=== PATIENT | female | born 1980 | race Caucasian/White ===

== ENCOUNTER 2016-10-30 10:33 | Inpatient (IN) | payer OTHER ==
[~2016-10-30] VITALS: Ht 152.4 cm; Wt 43.1 kg
[2016-10-30 19:45] VITALS: BP 137/99
--- NOTE | 2016-10-30 19:45 | NUR ---
Pre-Admission Note: Patient assessed in intake office at 19:45 on 10/30/2016. Patient is ambulatory with steady gait, stable, A&OX4, speech is clear. Patient states that she is here to safely detox from ETOH and benzodiazepines. Pt reports drinking 4 beers plus 1-1.5 bottles of wine daily for more than 6 months. Pt also reports taking Valium 10mg TID or Klonopin 1mg TID. Pt reports PRN use of Ambien. Patient states that she has taken 10mg of Valium and drink 2 glasses of wine on the flight to [place]. Patient noted to be flushed, with fine tremor, and guarded. VS: 137/99, 82, 98.0, 16, 96% Spo2 on RA. Patient denies pain at this time. Patient reports NKDA/NKFA. Patient instructed on unit protocol of vitals Q4H and COWS/CIWA assessments. Patient verbalized understanding and agreement. Patient also instructed on policy regarding destruction of any controlled substances/prescriptions brought to facility, and handling of all medications. Patient verbalized understanding and agreement. Will complete admission assessment when patient is brought up to unit.
--- NOTE | 2016-10-30 20:00 | NUR ---
ADMISSION NOTE: NEW ADMISSION IS A 35 YO FEMALE ON THE [facility] FLOOR AT 20:00 ON 10/30/16; PRE-ADMISSION ASSESSMENT COMPLETED IN INTAKE OFFICE. UDS/HCG SPECIMEN COLLECTED IN INTAKE. VS: 137/99, 82, 98.0, 16, 96% SPO2 ON RA. CIWA IS 18: PT REPORTS ANXIETY, AGITATION, DIAPHORESIS, NAUSEA, TACTILE DISTURBANCES, TREMOR, SENSITIVITY TO LIGHT AND SOUND. HEIGHT IS 50 AND WEIGHT BY BED SCALE IS 95 LBS. PT REPORTS NKDA/NKFA. PT REPORTS PCP (1) DR JCARLOS ARIAS, AND (2) DR KAYA RODRIGUEZ. PT ADMITTED UNDER THE CARE OF DR JENNINGS. PT REPORTS THE FOLLOWING SUBSTANCE USE: ETOH: PT REPORTS DRINKING 4-5 BEERS PLUS 750-1125ML WINE DAILY FOR MORE THAN 6 MONTHS. PATIENT REPORTS BEGINNING TO DRINK ON A DAILY BASIS STARTING IN 2010. LAST DRINK WAS 2 GLASSES OF WINE ON FLIGHT FROM [place] TO [facility]. VALIUM: PT REPORTS TAKING 10MG TID. PATIENT REPORTS TAKING VALIUM AT THIS RATE FOR MORE THAN 6 MONTHS. PT REPORTS DAILY USE OF VALIUM STARTING IN 2010. LAST USE WAS 10MG ON FLIGHT FROM [place] TO [facility] . KLONOPIN: PT REPORTS TAKING 1MG TID WHEN SHE RUNS OUT OF VALIUM. PATIENT REPORTS TAKING AMBIEN PRESCRIBED PRN FOR INSOMNIA. LAST TAKEN APPROXIMATELY 3 WEEKS AGO. PT REPORTS SMOKING 2-2.5 PACKS CIGARETTES DAILY FOR 17 YEARS. WRITTEN SMOKING CESSATION EDUCATION PROVIDED. PT VERBALIZES UNDERSTANDING. PT DENIES ADMISSION TO ANY TREATMENT/DETOX FACILITIES IN THE PAST. PT REPORTS PMHX OF HTN, ANXIETY, DEPRESSION, HYSTERECTOMY (2016). PT DENIES SZ HX. HOME MEDICATIONS HAVE BEEN RECONCILED. PT IS AMBULATORY WITH STEADY GAIT. A&OX4 AND NOTED TO BE GUARDED, DIAPHORETIC AND FLUSHED WITH FINE TREMOR. SKIN IS INTACT. PT DENIES CURRENT OR HX OF SI/HI. LUNGS ARE CTA THROUGHOUT, RESPIRATIONS ARE EVEN AND UNLABORED. PT REPORTS DRY COUGH; LUNGS CTA. HEART SOUNDS REGULAR. BOWEL SOUNDS ACTIVE IN ALL QUADRANTS. ABDOMEN IS SOFT, NON-DISTENDED, NON-TENDER.
[2016-10-30] MEDS ORDERED: MIRALAX 17 GM POWD.PACK PO PRN (21:30)
[2016-10-30] MEDS ORDERED: IBUPROFEN 400 MG TABLET PO PRN (21:30)
[2016-10-30] MEDS ORDERED: LORAZEPAM 1 MG TABLET PO PRN ×2 (21:30)
[2016-10-30] MEDS ORDERED: LOPERAMIDE HCL 2 MG CAPSULE PO PRN ×2 (21:30)
[2016-10-30] MEDS ORDERED: LORAZEPAM 2 MG/1 ML VIAL IM PRN (21:30)
[2016-10-30] MEDS ORDERED: DICYCLOMINE HCL 20 MG TABLET PO PRN (21:30)
[2016-10-30] MEDS ORDERED: MAGNESIUM HYDROXIDE 30 ML LIQUID UDC PO PRN (21:30)
[2016-10-30] MEDS ORDERED: ACETAMINOPHEN 325 MG TABLET PO PRN (21:30)
[2016-10-30] MEDS ORDERED: ONDANSETRON ODT 4 MG TAB.RAPDIS SL PRN (21:30)
[2016-10-30] MEDS ORDERED: THIAMINE HCL 200 MG/2 ML VIAL IM ONE (21:30)
[2016-10-30] MEDS ORDERED: MAG HYDROX/AL HYDROX/SIMETH 30 ML LIQUID UDC PO PRN (21:30)
--- NOTE | 2016-10-30 21:30 | NUR ---
Thiamine Refused: Patient refuses Thiamine IM injection. Patient educated on risks and benefits but refused again. Will continue to monitor.
[2016-10-30] MEDS: diphenhydrAMINE 50 MG CAPSULE PO PRN (21:52)
--- NOTE | 2016-10-30 21:52 | NUR ---
PRN Ativan, PRN Benadryl, and PRN Clonidine: Patient complains of anxiety, agitation, diaphoresis, tactile disturbances, sensitivity to light and sound, headache. CIWA is 18. Administered PRN Ativan 2mg as ordered according to CIWA score. Patient complains of anxiety and agitation. BP is 137/99. Administered PRN Clonidine as ordered. Patient complains of inability to sleep. Administered PRN Benadryl as ordered. Will continue to monitor.
[2016-10-30] MEDS: CLONIDINE HCL 0.1 MG TABLET PO PRN (21:53)
[2016-10-30] MEDS ORDERED: THIAMINE HCL 200 MG/2 ML VIAL ONE (21:54)
[2016-10-30] MEDS ORDERED: diphenhydrAMINE 50 MG CAPSULE ONE (21:55)
[2016-10-30] MEDS ORDERED: LORAZEPAM 1 MG TABLET ONE (21:55)
[2016-10-30] MEDS ORDERED: CLONIDINE HCL 0.1 MG TABLET ONE (21:56)
--- NOTE | 2016-10-30 22:55 | NUR ---
PRN Reassessment: Patient reports decrease in tremor, diaphoresis, tactile disturbances, and auditory/visual sensitivity. CIWA decreased from 18 to 5 one hour after PRN Ativan 2mg administration. PRN Ativan effective. Patient reports decrease in anxiety and diaphoresis. BP decreased from 137/99 to 114/80. PRN Clonidine effective. Patient reports feeling drowsy and states that she will be able to sleep. PRN Benadryl effective.
[2016-10-30 23:35] LABS: BASOPHILS # (AUTO) 0.1 K/uL (0.0-8.0); BASOPHILS % (AUTO) 0.9 % (0.0-2.0); EOSINOPHILS # (AUTO) 0.2 K/uL (0.0-0.7); EOSINOPHILS % (AUTO) 3.2 % (0.0-7.0); HEMATOCRIT 41.7 % (37-47); LYMPHOCYTES # (AUTO) 1.4 K/UL (0.8-4.8); MEAN CORPUSCULAR HEMOGLOBIN 32.6 UUG (27.0-31.0); MEAN CORPUSCULAR HGB CONC 34 g/dL (32.0-37.0); MEAN CORPUSCULAR VOLUME 97.2 FL (81.0-99.0); MONOCYTES # (AUTO) 0.3 K/UL (0.1-1.30); MONOCYTES % (AUTO) 4.3 % (0.0-11.0); NEUTROPHILS # (AUTO) 4.8 K/UL (1.8-8.9); NEUTROPHILS % (AUTO) 70.6 % (38.5-71.5); PLATELET COUNT (AUTO) 192 K/UL (150-450); RED BLOOD CELL COUNT(AUTO) 4.29 MIL/UL (4.2-5.4); RED CELL DISTRIBUTION WIDTH 13.2 % (11.5-14.5); WHITE BLOOD COUNT (AUTO) 6.8 K/UL (4.0-11.2)
[2016-10-30 23:43] LABS: *URINE HCG, QUAL NEGATIVE (NEGATIVE)
[2016-10-30 23:43] LABS: ALBUMIN 3.4 g/dL (3.4-5.0); BILIRUBIN,TOTAL 0.6 mg/dL (0.2-1.0); CALCIUM 8.1 mg/dL (8.5-10.1); CREATININE 0.6 mg/dL (0.6-1.3); MAGNESIUM 1.9 mg/dL (1.8-2.4); POTASSIUM 3.6 mmol/L (3.5-5.1)
[2016-10-30 23:48] LABS: *AMPHETAMINE, URINE NEGATIVE (NEGATIVE); *BARBITURATE, URINE NEGATIVE (NEGATIVE); *CANNABINOID, URINE NEGATIVE (NEGATIVE); *COCCAINE, URINE NEGATIVE (NEGATIVE); *OPIATE, URINE NEGATIVE (NEGATIVE); *PHENCYCLIDINE SCREEN,URINE NEGATIVE (NEGATIVE)
[2016-10-30 23:52] LABS: THYROID STIMULATING HORMONE 1.881 mIU/mL (0.358-3.740)
[2016-10-31] VITALS: BP 114/80
[2016-10-31] LABS: HIV-1 p24 ANTIGEN NON REACTIVE (NONREACTIVE); HIV-1/2 ANTIBODY NON REACTIVE (NONREACTIVE)
--- NOTE | 2016-10-31 | NUR ---
CIWA Deferred: Ordered 00:00 CIWA Q4HWA assessment deferred for sleep. V/S stable. All safety precautions are in place. Will continue to monitor. Addendum: 10/31/16 at 0224 by MIKY AGUILA RN Amended: Links added.
[2016-10-31] MEDS ORDERED: DIAZ10TA4 PO (01:30)
[2016-10-31] MEDS ORDERED: CLON0.1T PO (01:30)
[2016-10-31] MEDS ORDERED: CLON1TAB4 PO (01:30)
[2016-10-31] MEDS ORDERED: PARO20TA6 PO (01:30)
[2016-10-31] MEDS ORDERED: ZOLP5TAB7 PO (01:30)
[2016-10-31 04:00] VITALS: BP 98/61
--- NOTE | 2016-10-31 04:00 | NUR ---
CIWA Deferred: Ordered 04:00 CIWA assessment is deferred for sleep. V/S stable. All safety precautions are in place. Will continue to monitor. Addendum: 10/31/16 at 0439 by MIKY AGUILA RN Amended: Links added.
--- NOTE | 2016-10-31 07:00 | NUR ---
End of Shift Note: Pt is a 35 yo female admitted to [facility] on 10/30/16 for medically-supervised withdrawal from ETOH and benzodiazepines. Pt reports PMHx: HTN, anxiety, depression, hysterectomy . Pt reports NKDA/NKFA and is on a regular diet. Pt reports drinking 4 beers plus 750-1125ml wine and taking 30mg Valium daily for over 6 months. PRN Ativan 2mg was given for CIWA=18, which was effective and reduced CIWA=5. Last CIWA=6 at 22:30. PRN Clonidine was given for increased BP and anxiety. PRN Benadryl was given for inability to sleep, which was effective as pt slept 8 hours this shift. V/S stable throughout shift with elevated BP of 137/99 on admission. Total fluid intake this shift: 473 ml; output: urine x 1 and BM x 0. Pt is currently in bed, all needs have been attended and met. Pt endorsed to day shift nurse.
--- NOTE | 2016-10-31 07:48 | NUR ---
BEGINNING OF SHIFT Patient endorsement report received from production shift supervisor nurse, all pertinent information discussed. Patient is a 35 year old Female admitted on 10/30/2016 with admitting Dx: Etoh/bzo dependence, patient currently with no ongoing taper but has PRN Ativan for s/sx of withdrawal, will monitor patient closely. Per report patient slept for 8 hour. with last ciwa score of: 5, Received PRN: Ativan 2mg Po for s/sx of withdrawal, as per production shift supervisor medication was effective. Patient received in room with eyes closed, respirations are even and unlabored. call light with in reach. Responsive to verbal stimuli, educated regarding plan of care for the day. will continue to monitor closely. safety measures in place.
[2016-10-31 08:39] VITALS: BP 111/76
[2016-10-31] MEDS: FOLIC ACID 1 MG TABLET PO SCH (08:40)
[2016-10-31] MEDS: MULTIVITAMINS,THERAPEUTIC TABLET PO SCH (08:40)
[2016-10-31] MEDS: THIAMINE HCL 100 MG TABLET PO SCH (08:40)
--- NOTE | 2016-10-31 08:48 | NUR ---
PRN ATIVAN 0900 assessment patient presented with: intermittent nausea, fine tremors, sweating, moderate anxiety, and mild agitation with ciwa score of: 15, MD was notified. patient was administered PRN: Ativan 1 mg PO as ordered, will monitor effectiveness of medication. patient encouraged increase PO fluid intake as tolerated. Patient offered anti nausea medication and refused. safety measures in place. call light kept with in reach, will continue to monitor.
[2016-10-31] MEDS ORDERED: TUBERCULIN,PURIF.PROT.DERIV. 5 TU/0.1 ML TEST ID ONE (09:00)
[2016-10-31] MEDS ORDERED: DIAZEPAM 10 MG TABLET PO PRN ×2 (09:45)
[2016-10-31] MEDS ORDERED: DIAZEPAM 5 MG TABLET PO PRN (09:45)
--- NOTE | 2016-10-31 09:48 | NUR ---
ATIVAN REASSESSMENT Medication somewhat effective patient currently with ciwa score of: 13, patient was seen and examined by Dr. Cuevas, patient to begin a Valium taper as ordered, will administer medication as ordered, will continue to monitor closely.
[2016-10-31] MEDS: DIAZEPAM 10 MG TABLET PO SCH ×4 (10:28→21:14)
[2016-10-31 12:30] VITALS: BP 126/81
[2016-10-31] MEDS: GABAPENTIN 300 MG CAPSULE PO SCH ×2 (15:07→21:14)
--- NOTE | 2016-10-31 15:19 | NUR ---
Therapist informed client regarding the times for group therapy, 11am and 3:30pm. Therapist discussed some benefits of attending group and encouraged client to do so. Client responded by saying she would attend if she felt well enough and was able to do so.
[2016-10-31 17:00] VITALS: BP 122/87
[2016-10-31] MEDS: HYDROXYZINE PAMOATE 25 MG CAPSULE PO PRN (18:44)
[2016-10-31] MEDS: CLONIDINE HCL 0.1 MG TABLET PO PRN (18:45)
--- NOTE | 2016-10-31 18:45 | NUR ---
PRN VISTARIL/CLONIDINE Patient returned from cafeteria after dinner and as coming back to [facility] floor patient began to have increase in anxiety, patient was brought back to room, noted tearful. patient encouraged to express self, provided with calming reassurance. Administered Vistaril 50mg Po and clonidine 0.1mg Po as ordered, blood pressure checked prior to administration: bp: 131/89 hr: 92. Safety measures in place. Endorsed to [employer] internship nurse to follow up.
--- NOTE | 2016-10-31 18:57 | NUR ---
END OF SHIFT Patient alert and oriented x4, vital signs stable during shift. Patient with admitting Dx: etoh/BZO dependence. Patient was started on a Valium taper as per Dr. Cuevas, first dose administered today at 1000. Medication well tolerated, no ASE noted. 0900 assessment patient presented with: intermittent nausea, fine tremors, sweating, moderate anxiety and mild agitation with ciwa score of: 15. 1300 assessment patient presented with: mild nausea, fine tremors, sweats, moderate anxiety and mild agitation with ciwa score of; 12. 1700 assessment patient presented with: fine tremors, barely sweating, moderate anxiety and mild agitation with ciwa score of: 9. . Patient was administered PRN Ativan 1mg at 0848 for s/sx of withdrawal, medication effective and administered: Administered Vistaril 50mg Po and clonidine 0.1mg Po at 1845, endorsed to nurse to follow up on effectiveness of medication. During shift patient was seen by Dr. Hathaway during shift as well. During shift administered PPD to left f/a, procedure well tolerated. Patient encouraged adequate PO fluid intake as tolerated. Encouraged to attend group therapies/sessions to learn new coping skills to prevent relapse, denies any SI/HI. Safety measures in place. call light kept with in reach. all needs met and rendered. patient endorsed to linux system administrator nurse, all pertinent information discussed.
--- NOTE | 2016-10-31 19:44 | NUR ---
Start of Shift Note: Report received from day shift nurse. Pt is a 35 yo female admitted on 10/30/16 for medically-supervised withdrawal from ETOH and benzodiazepines. Pt reports drinking 4 beers plus 750-1125ml wine and taking 30mg Valium daily for over 6 months. Pt is on day 1 of a 5-day Valium taper. Pt received with last CIWA=9, and PRN's Ativan, Clonidine, and Vistaril were given during day shift. Pt reports NKDA/NKFA and is on a regular diet. Pt reports PMHx: HTN, anxiety, depression, hysterectomy . Pt received in room, and reports anxiety, diaphoresis, tremor, agitation, tactile disturbances. Pt noted to be labile, face flushed. Bed is in low position and locked, side rails up x2, call light within reach. Will continue to monitor.
--- NOTE | 2016-10-31 19:45 | NUR ---
PRN Reassessment: Patient reports that anxiety is now at a manageable level. PRN Vistaril and PRN Clonidine effective. Will continue to monitor.
[2016-10-31 20:00] VITALS: BP 117/81
[2016-10-31] MEDS: diphenhydrAMINE 50 MG CAPSULE PO PRN (21:14)
--- NOTE | 2016-10-31 21:14 | NUR ---
PRN Benadryl: Patient complains of inability to sleep. Administered PRN Benadryl as ordered. Will continue to monitor.
--- NOTE | 2016-10-31 22:15 | NUR ---
PRN Reassessment: Patient is in bed with eyes closed. Respirations are even and unlabored. No s/s of acute distress noted. PRN Benadryl effective. Will continue to monitor.
[2016-11-01] VITALS (7 sets, daily range): BP systolic 97–125; BP diastolic 61–88
--- NOTE | 2016-11-01 | NUR ---
CIWA Deferred: Ordered CIWA Q4HWA at 00:00 deferred for sleep. V/S stable. All safety precautions are in place. Will continue to monitor. Addendum: 11/01/16 at 0037 by MIKY AGUILA RN Amended: Links added.
--- NOTE | 2016-11-01 04:00 | NUR ---
CIWA Deferred: CIWA assessment is deferred for sleep. V/S stable. All safety precautions are in place. Will continue to monitor. Addendum: 11/01/16 at 0505 by MIKY AGUILA RN Amended: Links added.
--- NOTE | 2016-11-01 06:59 | NUR ---
End of Shift Note: Pt is a 35 yo female admitted to [facility] on 10/30/16 for medically-supervised withdrawal from ETOH and benzodiazepines. Pt reports PMHx: HTN, hysterectomy, anxiety, and depression,. Pt reports NKDA/NKFA. Pt is on a regular diet. Pt is a full code. Pt reports drinking 4 beers and 750-1125ml wine daily for over 6 months. Pt also reports taking 30mg Valium daily for over 6 months. Pt is to start day 2 of a 5-day Valium taper. Scheduled medication regime effectively managed s/s of withdrawal this shift. Last CIWA=12 at 20:00 before taper medication was administered. PRN Benadryl was given for inability to sleep, which was effective and pt slept 7 hours this shift. V/S stable throughout shift, with increased HR of 85 at 20:00. Total fluid intake this shift: 1800 ml; output: urine x 5 and BM x 0. Pt is currently in bed, all needs have been attended and met. Pt endorsed to day shift nurse.
--- NOTE | 2016-11-01 07:45 | NUR ---
START OF SHIFT Rcvd endorsement from night nurse, client is in room, she is A/Ox4, she presents with depressed and anxious mood, flat affect, gross tremors and flushed face noted. She denies any N/V/D, headache or SI/HI. She is a 35 y/o female [facility] for medically-supervised withdrawal from ETOH and benzodiazepines. NKDA/NKFA, Regular diet, full code. Day 2 of a 5-day Valium taper, scheduled medication regime effectively managed s/s of withdrawal. Last CIWA 12 at 20:00 before taper medication was administered. PRN Benadryl was given for inability to sleep, which was effective and pt slept 7 hours this shift. Seizure precautions. Side rails x 2 up/padded. Call light within reach. Will continue plan of care.
[2016-11-01] MEDS: DIAZEPAM 10 MG TABLET PO SCH ×3 (08:40→21:12)
[2016-11-01] MEDS: GABAPENTIN 300 MG CAPSULE PO SCH ×4 (08:41→21:11)
[2016-11-01] MEDS: MULTIVITAMINS,THERAPEUTIC TABLET PO SCH (08:41)
[2016-11-01] MEDS: CLONIDINE HCL 0.1 MG TABLET PO SCH ×2 (08:41→17:38)
[2016-11-01] MEDS: FOLIC ACID 1 MG TABLET PO SCH (08:41)
[2016-11-01] MEDS: THIAMINE HCL 100 MG TABLET PO SCH (08:41)
[2016-11-01 12:07] LABS: HEPATITIS B CORE AB, IgM Negative (Negative); HEPATITIS B SURFACE AG Negative (Negative)
[2016-11-01] MEDS: CLONIDINE HCL 0.1 MG TABLET PO PRN ×2 (13:55→21:12)
[2016-11-01] MEDS: HYDROXYZINE PAMOATE 25 MG CAPSULE PO PRN (13:55)
--- NOTE | 2016-11-01 13:55 | NUR ---
PRN Clonidine and Vistaril Client reports irritability, cold chills Clonidine 0.1mg PO given and Vistaril 50mg given for anxiety. Risk/benefits discussed. She verbalized understanding. call light within reach.
--- NOTE | 2016-11-01 14:55 | NUR ---
Reassessment PRN Clonidine and Vistaril Client reports relief from irritability, anxiety and cold chills Clonidine and Vistaril effective. Call light within reach.
--- NOTE | 2016-11-01 19:38 | NUR ---
END OF SHIFT Client is in group therapy to learn skills to maintain sober, Valium taper continues and is effective managing her s/sx of withdrawal (gross tremors, flushed faced, restless legs, anxiety and irritability) She is a 35 y/o female admitted to [facility] on 10/30/16 for medically-supervised withdrawal from ETOH and benzodiazepines. NKDA/NKFA, Regular diet, full code. Last CIWA 7 at 1600. PRN Clonidine for irritability, chills and Vistaril for anxiety, both noted effective. Adequate intake 2631mL and output void x 8. Seizure precautions. Side rails x 2 up/padded. Call light within reach. Will continue plan of care.
--- NOTE | 2016-11-01 19:50 | NUR ---
Start of Shift Note: Report received from day shift nurse. Pt is a 35 Y/O female admitted on 10/30/16 for medically-supervised withdrawal from ETOH and benzodiazepines. Pt reports drinking 4 beers and 750-1125ml wine daily and taking 10mg Valium TID for over 6 months. Pt is on the second day of a 5-day Valium taper. Pt received with last CIWA=7, and PRN's Clonidine and Vistaril were given during day shift. Pt reports NKDA/NKFA. Full code status. Pt is on a regular diet. Pt reports PMHx: HTN, hysterectomy, anxiety, and depression. Pt received in room, and reports anxiety, fine tremor, and dyspepsia. Bed is in low position and locked, side rails up x2, call light within reach. Will continue to monitor.
[2016-11-01] MEDS: diphenhydrAMINE 50 MG CAPSULE PO PRN (21:12)
--- NOTE | 2016-11-01 21:12 | NUR ---
PRN Clonidine and PRN Benadryl: Patient complains of increased anxiety and inability to sleep. Administered PRN Clonidine and PRN Benadryl as ordered. Patient educated on risks and benefits. Will continue to monitor.
--- NOTE | 2016-11-01 22:15 | NUR ---
PRN Reassessment: Patient is in bed with eyes closed. Respirations are even and unlabored. No s/s of acute distress noted. PRN Clonidine and PRN Benadryl effective. Will continue to monitor.
[2016-11-02] VITALS: BP 89/54
--- NOTE | 2016-11-02 | NUR ---
CIWA Deferred: Ordered CIWA Q4HWA is deferred for sleep. V/S stable. All safety precautions are in place. Will continue to monitor. Addendum: 11/02/16 at 0247 by MIKY AGUILA RN Amended: Links added.
[2016-11-02 04:00] VITALS: BP 90/59
--- NOTE | 2016-11-02 04:00 | NUR ---
CIWA Deferred: CIWA assessment at 04:00 is deferred for sleep. V/S stable. Bed in low position, side rails up x2, call light within reach. Will continue to monitor. Addendum: 11/02/16 at 0408 by MIKY AGUILA RN Amended: Links added.
--- NOTE | 2016-11-02 06:56 | NUR ---
End of Shift Note: Pt is a 35 y/o female admitted to [facility] on 10/30/16 for medically-supervised withdrawal from benzodiazepines and ETOH. PMHx: HTN, hysterectomy, anxiety, depression. Full code status, NKDA/NKFA, regular diet. Pt reports taking 30mg Valium daily and drinking 4 beers and 750-1125ml wine daily for >6 months. Pt is to start the third day of a 5-day Valium taper. Scheduled medication regime effectively managed s/s of withdrawal this shift, in addition to PRN Clonidine for anxiety. Last CIWA=4 at 20:00. PRN Benadryl was given for inability to sleep, which was effective and pt slept 8 hours this shift. V/S stable throughout shift. Total fluid intake this shift: 1000 ml; output: urine x 2 and BM x 0. Pt is currently in bed, all needs have been attended and met. Pt endorsed to day shift nurse.
--- NOTE | 2016-11-02 07:30 | NUR ---
START OF SHIFT Rcvd endorsement from night nurse, client is in bed, A/Ox4, she presents with depressed mood, flat affect, stating "I felt a little bit better last night, but now I feel horrible I'm with tremors, restless legs, cold chills, sweats, feel very anxious." She denies any N/V/D or headache. She denies any SI/HI. Encouraged increased fluids to assist in facilitating detox. Encouraged group attendance to implrove coping skills. Client is on 3 out of 5 day of Valium taper to managed s/sx of withdrawal. [facility] for medically-supervised withdrawal from benzodiazepines and ETOH. She denies any hx of induced-withdrawal seizure. Full code status, NKDA, regular diet. PRN Clonidine for anxiety. Last CIWA 4 at 1999. PRN Benadryl was given for inability to sleep, which was effective and pt slept 8 hours. Seizure precautions. Side rails x 2 up/padded. Call light within reach. Will continue plan of care.
--- NOTE | 2016-11-02 08:41 | NUR ---
Zero induration noted at Left F/A TB site
[2016-11-02 08:50] VITALS: BP 119/71
[2016-11-02] MEDS: DIAZEPAM 5 MG TABLET PO SCH ×4 (09:06→21:46)
[2016-11-02] MEDS: FOLIC ACID 1 MG TABLET PO SCH (09:06)
[2016-11-02] MEDS: GABAPENTIN 300 MG CAPSULE PO SCH ×3 (09:06→21:45)
[2016-11-02] MEDS: CLONIDINE HCL 0.1 MG TABLET PO SCH ×2 (09:06→17:34)
[2016-11-02] MEDS: THIAMINE HCL 100 MG TABLET PO SCH (09:06)
[2016-11-02] MEDS: MULTIVITAMINS,THERAPEUTIC TABLET PO SCH (09:06)
[2016-11-02] MEDS: CLONIDINE HCL 0.1 MG TABLET PO PRN (12:45)
--- NOTE | 2016-11-02 12:45 | NUR ---
PRN Clonidine Client complains of increased anxiety, administered PRN Clonidine as ordered. Client educated on risks and benefits. Will continue to monitor. Call light within reach.
[2016-11-02 12:50] VITALS: BP 120/63
--- NOTE | 2016-11-02 13:45 | NUR ---
Reassessment PRN Clonidine Client reports relief from anxiety, Clonidine effective. Call light within reach.
[2016-11-02 17:15] VITALS: BP 139/73
--- NOTE | 2016-11-02 19:18 | NUR ---
END OF SHIFT Client is in group therapy to learn skills to maintain sober, Valium taper continues and is effective managing her s/sx of withdrawal (gross tremors, flushed faced, restless legs, anxiety and irritability) She is a 35 y/o female admitted to [facility] on 10/30/16 for medically-supervised withdrawal from ETOH and benzodiazepines. NKDA/NKFA, Regular diet, full code. Last CIWA 8 at 1600. PRN Clonidine for anxiety noted effective. Adequate intake 2761mL and output void x 10. Seizure precautions. Side rails x 2 up/padded. Call light within reach. Will continue plan of care.
--- NOTE | 2016-11-02 19:30 | NUR ---
START OF SHIFT NOTES : Pt is a 35 Y/O female admitted on 10/30/16 for medically-supervised withdrawal from ETOH and benzodiazepines. Pt is on the second day of a 5-day Valium taper. NKDA/NKFA. Full code status. Pt is on a regular diet. Pt reports PMHx: HTN, hysterectomy, anxiety, and depression. Pt received in room, and reports anxiety, fine tremor, and dyspepsia. V/S remain WNL. RR=16, even and unlabored, lungs clear upon auscultation, abdomen soft and non- distended. Pt denies nausea, vomiting and diarrhea. All safety measures in place per hospital policy. Bed in lowest position, side rails up x2, call-light within reach. Will continue to monitor and provide support.
[2016-11-02 20:00] VITALS: BP 105/70
--- NOTE | 2016-11-02 21:30 | NUR ---
PRN BENADRYL , VISTARIL, Pt. complains of sleeplessness and increased level of anxiety. PRN BENADRYL, VISTARIL given as ordered. Safety measures in place : bed on lowest position with side rails x2 up for safety, call light within reach. Will continue to monitor closely and offer help.
[2016-11-02] MEDS: HYDROXYZINE PAMOATE 25 MG CAPSULE PO PRN (21:45)
[2016-11-02] MEDS: diphenhydrAMINE 50 MG CAPSULE PO PRN (21:46)
--- NOTE | 2016-11-02 22:15 | NUR ---
REASSESSMENT MALCOM KHAN Pt. is sleeping. RR=16, unlabored and even. Safety measures in place : bed on lowest position with side rails x2 up for safety, call light within reach. Will continue to monitor closely and offer help.
--- NOTE | 2016-11-03 06:35 | NUR ---
END OF SHIFT NOTES : Pt is a 35 Y/O female admitted on 10/30/16 for medically-supervised withdrawal from ETOH and benzodiazepines. Pt is on the second day of a 5-day Valium taper. NKDA/NKFA. Full code status. Pt is on a regular diet. Pt reports PMHx: HTN, hysterectomy, anxiety, and depression. V/S remain WNL. Pt remains compliant with the treatment plan. PRN BENADRYL, VISTARIL were given during my shift. V/S remain WNL. RR=16, even and unlabored, lungs clear upon auscultation, abdomen soft and non- distended. Pt denies nausea, vomiting and diarrhea. LAST CIWA=6 at 0400 , OEIQKE=5613 ml, voided x 2, slept 7 hours. Safety measures in place : bed on lowest position with side rails x2 up for safety, call light within reach. Will continue to monitor closely and offer help.
--- NOTE | 2016-11-03 07:54 | NUR ---
START OF SHIFT Rcvd endorsement from night nurse, client is in bed, A/Ox4, she presents with anxious mood, flat affect, stating "I feel very anxious, I'm afraid to go home and deal with consequences of my behavior." she reports restless legs & chills, she denies any N/V/D or headache. She denies any SI/HI. Encouraged increased fluids to assist in facilitating detox. Encouraged group attendance to help maintain sobriety. Client is on 4 out of 5 day of Valium taper to managed s/sx of withdrawal she was admitted for medically-supervised withdrawal from benzodiazepines and ETOH. She denies any hx of induced-withdrawal seizure. Full code status, NKDA, regular diet. PRN Clonidine for anxiety and Vistaril for inability to sleep, both noted effective, she slept 7 hrs. Last CIWA 6 @ 0400. Seizure precautions. Side rails x 2 up/padded. Call light within reach. Will continue plan of care.
[2016-11-03 08:00] VITALS: BP 107/67
[2016-11-03] MEDS: MULTIVITAMINS,THERAPEUTIC TABLET PO SCH (08:38)
[2016-11-03] MEDS: GABAPENTIN 300 MG CAPSULE PO SCH ×3 (08:38→21:39)
[2016-11-03] MEDS: DIAZEPAM 5 MG TABLET PO SCH ×3 (08:38→21:38)
[2016-11-03] MEDS: THIAMINE HCL 100 MG TABLET PO SCH (08:38)
[2016-11-03] MEDS: CLONIDINE HCL 0.1 MG TABLET PO SCH ×2 (08:38→17:20)
[2016-11-03] MEDS: FOLIC ACID 1 MG TABLET PO SCH (08:38)
[2016-11-03 12:35] VITALS: BP 122/84
[2016-11-03] MEDS: CLONIDINE HCL 0.1 MG TABLET PO PRN (14:58)
--- NOTE | 2016-11-03 14:58 | NUR ---
PRN Clonidine Client complains of increased anxiety, she is on the verge of tear, relaxation breathing techniques instituted, reinforcement needed, administered PRN Clonidine as ordered. Client educated on risks and benefits. Will continue to monitor. Call light within reach.
--- NOTE | 2016-11-03 15:58 | NUR ---
Reassessment PRN Clonidine Client is in bed, she appears less anxious. Client states, "Clonidine really helps me, I feel better." PRN Clonidine 0.1mg effective. Will continue to monitor. Call light within reach.
[2016-11-03 17:00] VITALS: BP 132/91
[2016-11-03] MEDS: HYDROXYZINE PAMOATE 25 MG CAPSULE PO PRN (17:20)
--- NOTE | 2016-11-03 17:20 | NUR ---
PRN Vistaril & Motrin Client states, "I don't feel good, I'm anxious and I have a strong desire to just leave and drink again." Encourage client to express feeling of despair, relaxation breathing techniques demonstrated, client needs reinforcement. Vistaril 50mg administered and Motrin 400mg for headache 5/10 at frontal area. Client educated on risks and benefits. Will continue to monitor. Call light within reach.
--- NOTE | 2016-11-03 18:20 | NUR ---
KARRI Castaneda Client is in room, eating her dinner and she is planning to go to group therapy, stating "I feel a little bit better, my headache is gone 0/10 and therapy will help me cope with my cravings." Jorge effective. Call light within reach.
--- NOTE | 2016-11-03 19:30 | NUR ---
END OF SHIFT Client is in group therapy to improve coping skills. Valium taper continues and is effective managing her s/sx of withdrawal (fine tremors, flushed faced, restless legs, anxiety and irritability) She is a 35 y/o female admitted to [facility] on 10/30/16 for medically-supervised withdrawal from ETOH and benzodiazepines. NKDA/NKFA, Regular diet, full code. Last CIWA 8 at 1700. PRN Clonidine for anxiety, Vistaril for anxiety, Motrin for FERREIRA; noted effective. Adequate intake 3000mL and output void x 10. Seizure precautions. Side rails x 2 up/padded. Call light within reach. Will continue plan of care.
--- NOTE | 2016-11-03 19:30 | NUR ---
START OF SHIFT : Pt is a 35 Y/O female admitted on 10/30/16 for medically-supervised withdrawal from ETOH and benzodiazepines. Pt is on the second day of a 5-day Valium taper. NKDA/NKFA. Full code status. Pt is on a regular diet. Pt reports PMHx: HTN, hysterectomy, anxiety, and depression. Pt. reports anxiety, fine tremor, and dyspepsia. V/S remain WNL. RR=16, even and unlabored, lungs clear upon auscultation, abdomen soft and non- distended. Pt denies nausea, vomiting and diarrhea. She is attending group right now. All safety measures in place per hospital policy. Bed in lowest position, side rails up x2, call-light within reach. Will continue to monitor and provide support.
[2016-11-03 20:00] VITALS: BP 104/69
--- NOTE | 2016-11-04 06:47 | NUR ---
END OF SHIFT : Pt is a 35 Y/O female admitted on 10/30/16 for medically-supervised withdrawal from ETOH and benzodiazepines. Pt is on the second day of a 5-day Valium taper. NKDA/NKFA. Full code status. Pt is on a regular diet. Pt reports PMHx: HTN, hysterectomy, anxiety, and depression. Pt. reports anxiety, fine tremor. Pt remains compliant with the treatment plan. PRN TYLENOL, CLONIDINE, ROBAXIN were given during my shift. V/S remain stable. RR=16, even and unlabored, lungs clear upon auscultation, abdomen soft and non- distended. Pt denies nausea, vomiting and diarrhea. LAST CIWA=4 at 0400 , KOSFTX=0601 ml, voided x 3, slept 7 hours. All safety measures in place per hospital policy. Bed in lowest position, side rails up x2, call-light within reach. Will continue to monitor and provide support.
--- NOTE | 2016-11-04 07:20 | NUR ---
START OF SHIFT NOTE Received report from night nurse, 35 Year old female admitted for ETOH/BENZO dependence. Pt reports NKDA/NKFA. Full code status. Pt is on a regular diet. Pt reports drinking 4 beers and 750-1125ml wine daily and taking 10mg Valium TID for over 6 months. Pt is on 5-day Valium taper. Pt did not receive any PRN medications, last CIWA-4, Slept for 7 hours. Received pt alert awake oriented x4 in stable condition, denies any N/V/D. Skin intact warm and dry tot touch. Educate the pt with current plan of the day and medication regimen with good verbal understanding. Safety measures in place, side rails up x2, call light within reach. Will continue to monitor.
[2016-11-04 08:00] VITALS: BP 104/64
[2016-11-04] MEDS: FOLIC ACID 1 MG TABLET PO SCH (09:09)
[2016-11-04] MEDS: GABAPENTIN 300 MG CAPSULE PO SCH ×3 (09:09→21:40)
[2016-11-04] MEDS: CLONIDINE HCL 0.1 MG TABLET PO SCH ×2 (09:10→16:41)
[2016-11-04] MEDS: MULTIVITAMINS,THERAPEUTIC TABLET PO SCH (09:10)
[2016-11-04] MEDS: THIAMINE HCL 100 MG TABLET PO SCH (09:10)
[2016-11-04] MEDS: DIAZEPAM 5 MG TABLET PO SCH ×2 (09:10→21:40)
[2016-11-04 12:00] VITALS: BP 114/87
[2016-11-04 16:00] VITALS: BP 116/77
--- NOTE | 2016-11-04 18:46 | NUR ---
END OF SHIFT NOTE Gave report to night nurse, 35 Year old female admitted for ETOH/BENZO dependence. Pt reports NKDA/NKFA. Full code status. Pt is on a regular diet. Pt reports drinking 4 beers and 750-1125ml wine daily and taking 10mg Valium TID for over 6 months. Pt cont on 5-day Valium taper tolerating well. Pt did not receive any PRN medication during shift and attend groups and activities, Last CIWA--4. Pt remained compliant with plan of care. Safety measures in place, call light within reach. Will pass report to oncoming nurse.
--- NOTE | 2016-11-04 19:30 | NUR ---
START OF SHIFT NOTE : Pt is a 35 Y/O female admitted on 10/30/16 for medically-supervised withdrawal from ETOH and benzodiazepines. Pt is on the second day of a 5-day Valium taper. NKDA/NKFA. Full code status. Pt is on a regular diet. Pt reports PMHx: HTN, hysterectomy, anxiety, and depression. Pt. reports anxiety, fine tremor, and dyspepsia. V/S remain WNL. RR=16, even and unlabored, lungs clear upon auscultation, abdomen soft and non- distended. Pt denies nausea, vomiting and diarrhea. She is in the activity room right now. All safety measures in place per hospital policy. Bed in lowest position, side rails up x2, call-light within reach. Will continue to monitor and provide support.
[2016-11-04 20:00] VITALS: BP 109/74
--- NOTE | 2016-11-05 06:55 | NUR ---
END OF SHIFT NOTE : Pt is a 35 Y/O female admitted on 10/30/16 for medically-supervised withdrawal from ETOH and benzodiazepines. Pt is on the second day of a 5-day Valium taper. NKDA/NKFA. Full code status. Pt is on a regular diet. Pt reports PMHx: HTN, hysterectomy, anxiety, and depression. Pt. reports anxiety, fine tremor, and dyspepsia. V/S remain WNL. RR=16, even and unlabored, lungs clear upon auscultation, abdomen soft and non- distended. Pt denies nausea, vomiting and diarrhea. Pt remains compliant with the treatment plan. No PRNs were given during my shift. V/S remain WNL. RR=16, even and unlabored, lungs clear upon auscultation, abdomen soft and non- distended. Pt denies nausea, vomiting and diarrhea. LAST CIWA= 4 at 0400 , INTAKE= 500 ml, voided x 2, slept 6 hours. Safety measures in place : bed on lowest position with side rails x2 up for safety, call light within reach. Will continue to monitor closely and offer help.
--- NOTE | 2016-11-05 07:20 | NUR ---
Start of Shift Report from the night nurse: pt is 35 y/o female here for Etho r/t wine 750-1125mL /d, Valium 10mg tid, and Klonopin 1mg tid; 5 day Valium taper started 10/31/16. Pt is a full code, regular diet, NKA, fall and seizure precaution ordered. HHx: Anxiety, depression, HTN, Hysterectomy, first time detoxing. V/S stable. Skin is intact. No new labs or orders endorsed to me. Last CIWA 4. Pt is asleep in room. Will cont. to monitor the pt.
[2016-11-05 08:00] VITALS: BP 119/73
[2016-11-05] MEDS: GABAPENTIN 300 MG CAPSULE PO SCH ×3 (08:31→21:25)
[2016-11-05] MEDS: MULTIVITAMINS,THERAPEUTIC TABLET PO SCH (08:31)
[2016-11-05] MEDS: THIAMINE HCL 100 MG TABLET PO SCH (08:31)
[2016-11-05] MEDS: CLONIDINE HCL 0.1 MG TABLET PO SCH ×2 (08:31→16:24)
[2016-11-05] MEDS: FOLIC ACID 1 MG TABLET PO SCH (08:31)
[2016-11-05 12:00] VITALS: BP 99/72
[2016-11-05] MEDS: HYDROXYZINE PAMOATE 25 MG CAPSULE PO PRN (12:50)
--- NOTE | 2016-11-05 13:00 | NUR ---
PRN Medication Administration Pt is in room crying and anxious with tremors since she found out that she is getting d/c'd tomorrow, V/S stable; PRN Vistaril 50mg given as ordered and educated pt on actions and SE's.
[2016-11-05 16:00] VITALS: BP 125/80
[2016-11-05] MEDS ORDERED: Gabapentin PO (18:10)
[2016-11-05] MEDS ORDERED: HYDR-3895 PO (18:10)
--- NOTE | 2016-11-05 18:55 | NUR ---
End of Shift Report to the night nurse: pt is 35 y/o female here for Etoh r/t wine 750-1125mL /d, Valium 10mg tid, and Klonopin 1mg tid; 5 day Valium taper started 10/31/16. Pt is a full code, regular diet, NKA, fall and seizure precaution ordered. HHx: Anxiety, depression, HTN, Hysterectomy, first time detoxing. V/S stable. Skin is intact. No chest pain or SOB noted. PRN Vistaril 50mg given for anxiety. New orders for the pt to be d/c'd tomorrow. Pt attended group therapy and activities during my shift. No hallucinations, delusions or suicidal ideations noted. Last CIWA 2.
[2016-11-05 20:00] VITALS: BP 108/73
--- NOTE | 2016-11-05 20:00 | NUR ---
Start of Shift Pt is a 35-year old, female, admitted for ETOH and Benzodiazepines Dependence. Pt placed on a 5-day Valium taper, started 10/31/2016, and with no adverse side effects. Pt with NKDA/NKFA, is Full code n a regular diet. With PMHx of Hypertension, Hysterectomy, Anxiety, and Depression. Pt is AAOx4 and with mild anxiety noted at this time. No SOB noted and not in respi distress. Pt is ambulatory with steady gait and with intact skin. Fall, universal, seizure and safety prec in place. Call light within reach. All needs met. Latest CIWA=3. Will continue to monitor.
[2016-11-05 21:52] LABS: *AMPHETAMINE, URINE NEGATIVE (NEGATIVE); *BARBITURATE, URINE NEGATIVE (NEGATIVE); *CANNABINOID, URINE NEGATIVE (NEGATIVE); *COCCAINE, URINE NEGATIVE (NEGATIVE); *OPIATE, URINE NEGATIVE (NEGATIVE); *PHENCYCLIDINE SCREEN,URINE NEGATIVE (NEGATIVE)
[2016-11-06] VITALS: BP 115/79
[2016-11-06 04:00] VITALS: BP 108/77
--- NOTE | 2016-11-06 07:00 | NUR ---
Start of Shift Report from the night nurse with update: pt is 35 y/o female here for Etoh r/t wine 750-1125mL /d, Valium 10mg tid, and Klonopin 1mg tid; 5 day Valium taper started 10/31/16. Pt is a full code, regular diet, NKA, fall and seizure precaution ordered. HHx: Smoker, Anxiety, depression, HTN, Hysterectomy, first time detoxing. V/S stable yet HR is elevated since she is nervous about getting d/c'd today. Skin is intact. No PRN given last night. No new labs or orders endorsed to me. Last CIWA 3. Will prep pt for d/c this morning as ordered. Will cont. to monitor the pt.
--- NOTE | 2016-11-06 07:06 | NUR ---
End of Shift Pt is a 35-year old, female, admitted for ETOH and Benzodiazepines Dependence. Pt placed on a 5-day Valium taper, started 10/31/2016, and with no adverse side effects. Pt with NKDA/NKFA, is Full code n a regular diet. With PMHx of Hypertension, Hysterectomy, Anxiety, and Depression. Pt is AAOx4 and with mild anxiety noted at this time. No SOB noted and not in respi distress. Pt is ambulatory with steady gait and with intact skin. Fall, universal, seizure and safety prec in place. Call light within reach. All needs met. Latest CIWA=3, slept for 7 hours. Endorsed to AM shift nurse for continuity of care.
[2016-11-06 08:05] VITALS: BP 125/83
[2016-11-06] MEDS: CLONIDINE HCL 0.1 MG TABLET PO SCH (08:05)
[2016-11-06] MEDS: MULTIVITAMINS,THERAPEUTIC TABLET PO SCH (08:05)
[2016-11-06] MEDS: FOLIC ACID 1 MG TABLET PO SCH (08:05)
[2016-11-06] MEDS: THIAMINE HCL 100 MG TABLET PO SCH (08:06)
[2016-11-06] MEDS: GABAPENTIN 300 MG CAPSULE PO SCH (08:06)
[2016-11-06] MEDS: HYDROXYZINE PAMOATE 25 MG CAPSULE PO PRN (08:06)
--- NOTE | 2016-11-06 08:06 | NUR ---
PRN Medication Administration Pt is in room sitting on bed resting and states that she is nervous & excited about getting d/c'd today but has anxiety with HR 117; PRN Vistaril 50mg PO given as ordered. Will reassess in 1H.
--- NOTE | 2016-11-06 09:15 | NUR ---
Discharge and Reassessment Pt is A&O x 4, ambulatory independently. Features symmetrical, PERRLA 3mm, no FERREIRA, dizziness or N/V noted. Pt denies chest pain. No SOB noted. Pt has less anxiety and irritability; PRN Vistaril is effective. V/S stable. Skin is intact. Pt denies w/d s/sx. Pt is given belongings, home medications, written Rx and d/c summary packet. Pt is chaperoned to the lobby and escorted to the "[employer]" for the scheduled d/c to the [facility].
[2016-11-06 10:08] LABS: *BENZODIAZEPINES Positive (.); *NORDIAZEPAM Positive (.); *OXAZEPAM Positive (.)
== END 2016-11-06 09:16 | disposition other institution (70) | DRG 895 ==
LOC: SRC 18:59
PROVIDERS: ADMIT Internal Medicine; ATTEND Internal Medicine
PROC: HZ2ZZZZ Detoxification Services for Substance Abuse Treatment (ICD-10-PCS; principal; 2016-10-30)
PROC: HZ31ZZZ Individual Counseling for Substance Abuse Treatment, Behavioral (ICD-10-PCS; 2016-10-31)
PROC: HZ41ZZZ Group Counseling for Substance Abuse Treatment, Behavioral (ICD-10-PCS; 2016-10-31)
DX: F10.230 Alcohol dependence with withdrawal, uncomplicated (principal); F13.230 Sedative, hypnotic or anxiolytic dependence with withdrawal, uncomplicated; Y90.9 Presence of alcohol in blood, level not specified; I10 Essential (primary) hypertension; F41.9 Anxiety disorder, unspecified; Z81.1 Family history of alcohol abuse and dependence; Z79.899 Other long term (current) drug therapy
CPT/HCPCS: 36415; 70030-TC; 80307; 80346; 83690; 83735; 84443; 84703; 85025; 86580; 86705; 87340; 87806; A4663; G6040-TC; J3411; Q0163